=== PATIENT | female | born 1945 | race Caucasian/White ===

== ENCOUNTER 2023-02-07 12:51 | Emergency (ER) | payer MEDICARE ==
[~2023-02-07] VITALS: Ht 152.4 cm; Wt 86.2 kg
[~2023-02-07 12:51] MED LIST: BETA1TAB19 PO; BUDE10.2 INH; ESCI10TA PO; GUAI118S20 PO; LACT1TAB20 PO; LANS30CA54 PO; LOSA50TA39 PO
--- NOTE | 2023-02-07 13:07 | NUR ---
PT IS IN ROOM #2A. DR GUTIÉRREZ EVALUATED THE PT.
--- NOTE | 2023-02-07 15:16 | NUR ---
PT WAS D/C'd TO HOME. D/C INSTRUCTIONS GIVEN TO THE PT BY DR GUTIÉRREZ.
[2023-02-07 15:17] VITALS: BP 143/78
== END 2023-02-07 15:18 | disposition home or self-care (01) ==
LOC: ER 12:51
DX: R07.89 Other chest pain (principal); W19.XXXA Unspecified fall, initial encounter; Y92.89 Other specified places as the place of occurrence of the external cause; K21.9 Gastro-esophageal reflux disease without esophagitis; Z88.6 Allergy status to analgesic agent; Z82.49 Family history of ischemic heart disease and other diseases of the circulatory system; Z82.3 Family history of stroke; Z88.0 Allergy status to penicillin; H35.30 Unspecified macular degeneration
CPT/HCPCS: 71250; A4663

== ENCOUNTER 2024-12-28 09:38 | Emergency (ER) | payer MEDICARE ==
[~2024-12-28] VITALS: Ht 152.4 cm; Wt 90.7 kg
[2024-12-28 19:44] VITALS: BP 121/71; O2SAT 100
== END 2024-12-28 15:00 | disposition home or self-care (01) ==
LOC: ER 09:38
DX: S32.048A Other fracture of fourth lumbar vertebra, initial encounter for closed fracture (principal); S20.219A Contusion of unspecified front wall of thorax, initial encounter; S89.82XA Other specified injuries of left lower leg, initial encounter; K21.9 Gastro-esophageal reflux disease without esophagitis; M43.16 Spondylolisthesis, lumbar region; M48.061 Spinal stenosis, lumbar region without neurogenic claudication; M51.369 Other intervertebral disc degeneration, lumbar region without mention of lumbar back pain or lower extremity pain; Z79.51 Long term (current) use of inhaled steroids; Z79.899 Other long term (current) drug therapy; Z88.0 Allergy status to penicillin; Z88.5 Allergy status to narcotic agent; Z88.6 Allergy status to analgesic agent
CPT/HCPCS: 71101; 72131; A4606; A4663